=== PATIENT | male | born 1960 ===

== ENCOUNTER 2017-04-12 04:08 | Inpatient (IN) | payer MEDICAID ==
[2017-04-12] MEDS ORDERED: Lactated Ringers 1,000 ML IV ONE (04:34)
[2017-04-12] MEDS ORDERED: Morphine 4 MG/ML Syringe IVPUSH ONE (04:36)
[2017-04-12] MEDS ORDERED: Ondansetron 8 MG in Sodium Chloride 0.9% 50 ML IV PRN (04:36)
[2017-04-12 04:49] LABS: CHLORIDE,CL 102 mEq/L (98-106); SODIUM,NA 139 mEq/L (136-145)
--- NOTE | 2017-04-12 05:40 | EDM.PDOC ---
ED HPI GENERAL MEDICAL PROBLEM - General Chief Complaint: Abdominal Pain Stated Complaint: "Having abdominal Pain" Time Seen by Provider: 04/12/17 04:42 Source of Information: Reports: Patient History Limitations: Reports: No Limitations - History of Present Illness INITIAL COMMENTS - FREE TEXT/NARRATIVE: Wade is a 56 yo male who presents to the ER via private vehicle with concerns of severe abdominal pain. States he went to bed around 2300hrs tonight and woke up about 0100am with severe abdominal pain. Admits to a history of pancreatitis. States he does drink upwards of 1 Liter of Vodka per day. States over the weekend he had friends from [place] up [place] [employer] and states he drank more than he should have. States he feels nauseated. Admits he will need something for alcohol withdrawal as he will start to get the shakes. Bowel movements haven't been as soft as they usually are. Onset: Today, Sudden Onset Date: 04/12/17 Onset Time: 01:00 Duration: Constant Location: Reports: Abdomen Quality: Reports: Same as Previous Episode Severity: Severe Improves with: Reports: None Associated Symptoms: Reports: Cough, Fever/Chills, Loss of Appetite, Nausea/ Vomiting. Denies: Confusion, Chest Pain, cough w sputum, Shortness of Breath - Related Data Allergies Allergy/AdvReac Type Severity Reaction Status Date / Time bee pollen Allergy Anaphylactic Verified 04/12/17 05:07 Shock Home Meds: Home Meds Atenolol 25 mg PO DAILY 04/12/17 [History] Pantoprazole [ProTONIX] 40 mg BID 04/12/17 [History] amLODIPine [Norvasc] 10 mg DAILY 04/12/17 [History] busPIRone [Buspar] 7.5 mg BID 04/12/17 [History] Past Medical History Cardiovascular History: Reports: Hypertension Gastrointestinal History: Reports: Pancreatitis Other Psychiatric History: alcoholism Oncologic (Cancer) History: Reports: Other (See Below) (stomach) - Past Surgical History GI Surgical History: Reports: Appendectomy, Other (See Below) (stomach surgery for cancer, splenectomy) Social & Family History - Tobacco Use Smoking Status *Q: Current Every Day Smoker Years of Tobacco use: 30 Used Tobacco, but Quit: No Second Hand Smoke Exposure: No - Alcohol Use Days Per Week of Alcohol Use: 5 Number of Drinks Per Day: 3 Total Drinks Per Week: 15 Alcohol Use Frequency: Daily - Recreational Drug Use Recreational Drug Use: Yes Recreational Drug Type: Reports: Marijuana/Hashish ED ROS GENERAL - Review of Systems Review Of Systems: See Below Constitutional: Reports: Chills, Malaise, Diaphoresis, Decreased Appetite. Denies: Fever HEENT: Reports: No Symptoms Respiratory: Reports: Cough. Denies: Shortness of Breath, Wheezing Cardiovascular: Reports: Blood Pressure Problem. Denies: Chest Pain, Palpitations, Syncope GI/Abdominal: Reports: Abdominal Pain, Constipation, Decreased Appetite, Nausea. Denies: Diarrhea, Vomiting : Reports: No Symptoms Skin: Reports: No Symptoms Neurological: Reports: Headache. Denies: Dizziness, Seizure, Syncope ED EXAM, GI/ABD - Physical Exam Exam: See Below Exam Limited By: No Limitations General Appearance: Alert, Moderate Distress. No: Active Emesis Eyes: Bilateral: Normal Appearance Ears: Normal External Exam, Normal Canal, Hearing Grossly Normal, Normal TMs Nose: Normal Mucosa, No Blood, Other (deviated septum to right) Throat/Mouth: Normal Inspection, Normal Lips, Normal Gums, Normal Oropharynx, Normal Voice, No Airway Compromise Head: Atraumatic, Normocephalic Neck: Normal Inspection, Supple Respiratory/Chest: No Respiratory Distress, Lungs Clear, No Accessory Muscle Use , Decreased Breath Sounds Cardiovascular: Regular Rate, Rhythm, No Edema, No Murmur GI/Abdominal Exam: Normal Bowel Sounds, No Organomegaly, No Mass, Tender ( epigastric) Extremities: Normal Inspection, No Pedal Edema, Normal Capillary Refill Neurological: Alert, Oriented, Normal Cognition, No Motor/Sensory Deficits Psychiatric: Normal Affect, Normal Mood Skin Exam: Warm, Dry, Intact, No Rash, Pallor Course - Orders/Labs/Meds Orders: Active Orders 24 hr Category Date Time Status Patient Status Manage Transfer [TRANSFER] Routine ADT 04/12/17 05:13 Ordered LIPASE [REF] Routine Lab 04/12/17 04:50 Received Ondansetron [Zofran] 8 mg Med 04/12/17 04:36 Active Sodium Chloride 0.9% [Normal Saline] 50 ml IV Q8H Resuscitation Status Routine Resus Stat 04/12/17 05:14 Ordered Medication Orders Ondansetron HCl 8 mg/ Sodium (Chloride) 54 mls @ 100 mls/hr IV Q8H PRN PRN Reason: Nausea Last Admin: 04/12/17 04:56 Dose: 100 mls/hr Labs: Laboratory Tests 04/12/17 04/12/17 04/12/17 Range/Units 04:35 04:35 04:35 WBC 9.1 (5.0-10.0) 10^3/uL RBC 4.57 (4.50-6.00) 10^6/uL Hgb 15.5 (14.0-18.0) g/dL Hct 44.6 (40.0-54.0) % MCV 97.6 H (82.0-94.0) fL MCH 33.9 H (27.0-32.0) pg MCHC 34.8 (33.0-38.0) g/dL RDW Coeff of [place] 18.5 H (11.0-15.0) % Plt Count 172 (150-400) 10^3/uL Neut % (Auto) 75.0 (35-85) % Lymph % (Auto) 13.3 (10-55) % [place] % (Auto) 9.9 (0-16) % Eos % (Auto) 1.2 (0-5) % Baso % (Auto) 0.6 (0-3) % Neut # (Auto) 6.81 (1.80-7.00) 10^3/uL Lymph # (Auto) 1.21 (1.00-4.80) 10^3/uL [place] # (Auto) 0.90 H (0.00-0.80) 10^3/uL Eos # (Auto) 0.11 (0.00-0.45) 10^3/uL Baso # (Auto) 0.05 10^3/uL Sodium 139 (136-145) mEq/L Potassium 3.6 (3.5-5.0) mEq/L Chloride 102 (98-106) mEq/L Carbon Dioxide 24 (21-32) mmol/L BUN 13 (7-18) mg/dL Creatinine 0.9 (0.7-1.3) mg/dL Est Cr Clr Drug Dosing TNP Estimated GFR (MDRD) > 60 (>=60) mL/min Glucose 102 H (75-99) mg/dL Calcium 8.8 (8.4-10.1) mg/dL Total Bilirubin 0.6 (0.0-1.0) mg/dL AST 82 H (15-37) U/L ALT 91 H (12-78) U/L Alkaline Phosphatase 87 (46-116) U/L C-Reactive Protein 1.1 H (0.2-0.8) mg/dL Total Protein 7.9 (6.4-8.2) g/dL Albumin 3.5 (3.4-5.0) g/dL Amylase 163 H (25-115) U/L Urine Color Dark yellow (YELLOW) Urine Appearance Clear (CLEAR) Urine pH 6.0 (4.5-8.0) Ur Specific [place] 1.025 H (1.003-1.020) Urine Protein 100 H (NEGATIVE) mg/dL Urine Glucose (UA) Negative (NEGATIVE) mg/dL Urine Ketones 15 H (NEGATIVE) mg/dL Urine Occult Blood Trace-lysed H (NEGATIVE) Urine Nitrite Negative (NEGATIVE) Urine Bilirubin Negative (NEGATIVE) Urine Urobilinogen 0.2 (0.2-1.0) EU/dL Ur Leukocyte Esterase Negative (NEGATIVE) Urine RBC Not seen (0-5) /HPF Urine WBC Not seen (0-5) /HPF Meds: Medications Generic Name Dose Route Start Last Admin Trade Name Freq PRN Reason Stop Dose Admin Ondansetron HCl 8 mg/ Sodium 54 mls @ 100 mls/hr 04/12/17 04:36 04/12/17 04: 56 Chloride IV 100 mls/hr Q8H PRN Administration Nausea Discontinued Medications Generic Name Dose Route Start Last Admin Trade Name Freq PRN Reason Stop Dose Admin Lactated Ringer's 1,000 mls @ 999 mls/hr 04/12/17 04:34 04/12/17 04:49 Ringers, Lactated IV 04/12/17 05:34 999 mls/hr .BOLUS ONE Administration Morphine Sulfate 4 mg 04/12/17 04:36 04/12/17 04:55 Morphine IVPUSH 04/12/17 04:37 4 mg ONETIME ONE Administration Departure - Departure Time of Disposition: 05:48 Disposition: Admitted As Inpatient 68 Clinical Impression: Pancreatitis Qualifiers: Chronicity: acute Pancreatitis type: alcohol induced Acute pancreatitis complication: unspecified Qualified Code(s): K85.20 - Alcohol induced acute pancreatitis without necrosis or infection - Discharge Information - Problem List & Annotations (1) Pancreatitis SNOMED Code(s): 42961944 Code(s): K85.90 - ACUTE PANCREATITIS WITHOUT NECROSIS OR INFECTION, UNSP Status: Acute Qualifiers: Chronicity: acute Pancreatitis type: alcohol induced Acute pancreatitis complication: unspecified Qualified Code(s): K85.20 - Alcohol induced acute pancreatitis without necrosis or infection - Problem List Review Problem List Initiated/Reviewed/Updated: Yes - My Orders Last 24 Hours: My Active Orders 04/12/17 04:36 Ondansetron [Zofran] 8 mg Sodium Chloride 0.9% [Normal Saline] 50 ml IV Q8H 04/12/17 04:50 LIPASE [REF] Routine 04/12/17 05:13 Patient Status Manage Transfer [TRANSFER] Routine 04/12/17 05:14 Resuscitation Status Routine - Assessment/Plan Admission H&P: Please use this note as an admission H&P Last 24 Hours: My Active Orders 04/12/17 04:36 Ondansetron [Zofran] 8 mg Sodium Chloride 0.9% [Normal Saline] 50 ml IV Q8H 04/12/17 04:50 LIPASE [REF] Routine 04/12/17 05:13 Patient Status Manage Transfer [TRANSFER] Routine 04/12/17 05:14 Resuscitation Status Routine Plan: Amylase is elevated with mildly elevated LFT's. Will initiate IV fluid bolus of LR over 1 Liter with continuous fluids to follow at 200mls/hr. Will follow input and output daily as well. Will give Fentanyl with Toradol for discomfort intravenously. Willie is to remain NPO. Zofran intravenously for nausea. Valium for alcohol withdrawal. Will admit to Dr. Hinkle's services under acute care. CT of the abdomen/pelvis to be completed.
[2017-04-12] MEDS ORDERED: Ondansetron 4 MG/2 ML SDV IV PRN (06:30)
[2017-04-12] MEDS ORDERED: Magnesium Hydroxide 400 MG/5 ML Susp 30 ML Cup PO PRN (06:30)
[2017-04-12] MEDS ORDERED: Acetaminophen 325 MG Tab PO PRN (06:30)
[2017-04-12] MEDS ORDERED: Ketorolac 30 MG/ML SDV IVPUSH SCH ×2 (06:30→16:00)
[2017-04-12] MEDS ORDERED: Enoxaparin 40 MG/0.4 ML Syringe SUBCUT SCH (07:00)
[2017-04-12] MEDS: Lactated Ringers 1,000 ML IV SCH ×4 (07:41→23:45)
[2017-04-12] MEDS ORDERED: BUSPIRONE 7.5 MG PO SCH (08:00)
[2017-04-12] MEDS ORDERED: Pantoprazole 40 MG Tab.CR PO SCH (08:00)
[2017-04-12] MEDS ORDERED: Thiamine 100 MG in Sodium Chloride 0.9% 100 ML IV ONE (08:35)
[2017-04-12] MEDS: Pantoprazole 40 MG Vial IVPUSH SCH (09:23)
[2017-04-12] MEDS: fentaNYL 100 MCG/2 ML SDV IVPUSH PRN ×5 (09:26→23:03)
[2017-04-12] MEDS: Multivitamin Tab PO SCH (09:45)
[2017-04-12] MEDS: busPIRone 5 MG Tab PO SCH ×2 (09:46→19:57)
[2017-04-12] MEDS: amLODIPine 10 MG Tab PO SCH (09:46)
[2017-04-12] MEDS: Atenolol 25 MG Tab PO SCH (09:46)
[2017-04-12] MEDS: Folic Acid 1 MG Tab PO SCH (09:46)
[2017-04-12] MEDS: LORazepam 2 MG/ML Syringe IVPUSH PRN ×5 (09:56→19:55)
[2017-04-12] MEDS: Acetaminophen/oxyCODONE 325-5 MG Tab PO PRN (19:54)
[2017-04-12] MEDS: Thiamine 100 MG Tab PO SCH (19:58)
[2017-04-13] MEDS: Lactated Ringers 1,000 ML IV SCH ×4 (04:15→21:33)
[2017-04-13] MEDS: Acetaminophen/oxyCODONE 325-5 MG Tab PO PRN (04:15)
[2017-04-13] MEDS: fentaNYL 100 MCG/2 ML SDV IVPUSH PRN ×4 (06:41→21:31)
[2017-04-13 07:19] LABS: CHLORIDE,CL 98 mEq/L (98-106); SODIUM,NA 135 mEq/L (136-145)
[2017-04-13] MEDS: Pantoprazole 40 MG Vial IVPUSH SCH (08:14)
[2017-04-13] MEDS: Enoxaparin 40 MG/0.4 ML Syringe SUBCUT SCH (08:14)
[2017-04-13] MEDS: amLODIPine 10 MG Tab PO SCH (08:15)
[2017-04-13] MEDS: Folic Acid 1 MG Tab PO SCH (08:15)
[2017-04-13] MEDS: Atenolol 25 MG Tab PO SCH (08:15)
[2017-04-13] MEDS: Multivitamin Tab PO SCH (08:15)
[2017-04-13] MEDS: busPIRone 5 MG Tab PO SCH ×2 (08:15→19:57)
[2017-04-13] MEDS ORDERED: Magnesium Sulfate/D5W 2 GM in Premix Bag 1 BAG IV ONE (08:50)
[2017-04-13] MEDS: chlordiazePOXIDE 10 MG Cap PO SCH ×2 (18:41→19:57)
[2017-04-13] MEDS: Thiamine 100 MG Tab PO SCH (19:56)
[2017-04-13] MEDS: LORazepam 2 MG/ML Syringe IVPUSH PRN (19:57)
--- NOTE | 2017-04-13 20:25 | PCM.PN ---
- General Info Date of Service: 04/13/17 Admission Dx/Problem (Free Text): Acute Pancreatitis Functional Status: Reports: Pain Controlled, Ambulating, Urinating. Denies: Tolerating Diet - Review of Systems General: Reports: Fatigue, Malaise. Denies: Fever HEENT: Reports: No Symptoms Pulmonary: Reports: Cough. Denies: Shortness of Breath, Wheezing Cardiovascular: Denies: Chest Pain, Edema, Lightheadedness Gastrointestinal: Reports: Abdominal Pain. Denies: Nausea, Vomiting Genitourinary: Reports: No Symptoms Musculoskeletal: Reports: No Symptoms Skin: Reports: No Symptoms Neurological: Reports: No Symptoms Psychiatric: Reports: Anxiety - Patient Data Vitals - Most Recent: Last Vital Signs Temp 98.4 F 04/13/17 20:00 Pulse 73 04/13/17 20:00 Resp 20 04/13/17 20:00 BP 134/96 H 04/13/17 20:00 Pulse Ox 95 04/13/17 20:00 Weight - Most Recent: 196 lb 6.4 oz I&O - Last 24 Hours: Intake & Output 04/13/17 04/13/17 04/13/17 06:59 14:59 22:59 Intake Total 2020 1833 Output Total 925 3500 Balance 1095 1833 -3500 Lab Results Last 24 Hours: Laboratory Results - last 24 hr 04/13/17 04/13/17 Range/Units 05:11 05:15 WBC 8.9 (5.0-10.0) 10^3/uL RBC 4.26 L (4.50-6.00) 10^6/uL Hgb 14.4 (14.0-18.0) g/dL Hct 42.3 (40.0-54.0) % MCV 99.3 H (82.0-94.0) fL MCH 33.8 H (27.0-32.0) pg MCHC 34.0 (33.0-38.0) g/dL RDW Coeff of [place] 17.6 H (11.0-15.0) % Plt Count 153 (150-400) 10^3/uL Neut % (Auto) 67.9 (35-85) % Lymph % (Auto) 18.0 (10-55) % [place] % (Auto) 11.9 (0-16) % Eos % (Auto) 2.0 (0-5) % Baso % (Auto) 0.2 (0-3) % Neut # (Auto) 6.04 (1.80-7.00) 10^3/uL Lymph # (Auto) 1.60 (1.00-4.80) 10^3/uL [place] # (Auto) 1.06 H (0.00-0.80) 10^3/uL Eos # (Auto) 0.18 (0.00-0.45) 10^3/uL Baso # (Auto) 0.02 10^3/uL Sodium 135 L (136-145) mEq/L Potassium 3.9 (3.5-5.0) mEq/L Chloride 98 (98-106) mEq/L Carbon Dioxide 28 (21-32) mmol/L BUN 8 (7-18) mg/dL Creatinine 0.8 (0.7-1.3) mg/dL Est Cr Clr Drug Dosing 115.86 mL/min Estimated GFR (MDRD) > 60 (>=60) mL/min Glucose 76 D (75-99) mg/dL Calcium 9.0 (8.4-10.1) mg/dL Magnesium 1.5 L (1.8-2.4) mg/dL Total Bilirubin 0.8 (0.0-1.0) mg/dL AST 41 H (15-37) U/L ALT 60 (12-78) U/L Alkaline Phosphatase 76 (46-116) U/L C-Reactive Protein 6.6 H (0.2-0.8) mg/dL Total Protein 7.1 (6.4-8.2) g/dL Albumin 2.9 L (3.4-5.0) g/dL Med Orders - Current: Current Medications Acetaminophen (Tylenol) 650 mg PO Q4H PRN PRN Reason: Pain (Mild 1-3)/fever Amlodipine Besylate (Norvasc) 10 mg PO DAILY [facility] Last Admin: 04/13/17 08:15 Dose: 10 mg Atenolol (Tenormin) 25 mg PO DAILY [facility] Last Admin: 04/13/17 08:15 Dose: 25 mg Buspirone HCl (Buspar) 7.5 mg PO BID [facility] Last Admin: 04/13/17 19:57 Dose: 7.5 mg Chlordiazepoxide HCl (Librium) 10 mg PO BID [facility] Last Admin: 04/13/17 19:57 Dose: 10 mg Enoxaparin Sodium (Lovenox) 40 mg SUBCUT Q24H [facility] Last Admin: 04/13/17 08:14 Dose: 40 mg Fentanyl (Sublimaze) 50 mcg IVPUSH Q2H PRN PRN Reason: Abdominal Pain Last Admin: 04/13/17 16:40 Dose: 50 mcg Folic Acid (Folic Acid) 1 mg PO DAILY [facility] Last Admin: 04/13/17 08:15 Dose: 1 mg Lactated Ringer's (Ringers, Lactated) 1,000 mls @ 200 mls/hr IV ASDIRECTED [facility] Last Admin: 04/13/17 16:30 Dose: 200 mls/hr Lorazepam (Ativan) 1 mg IVPUSH Q2H PRN PRN Reason: Withdrawal Symptoms Last Admin: 04/13/17 19:57 Dose: 1 mg Magnesium Hydroxide (Milk Of Magnesia) 30 ml PO Q12H PRN PRN Reason: Constipation Magnesium Oxide (Magnesium Oxide) 250 mg PO BIDM [facility] Last Admin: 04/13/17 16:29 Dose: 250 mg Multivitamins/Minerals/Vitamin C (Tab-A-[place]) 1 tab PO DAILY [facility] Last Admin: 04/13/17 08:15 Dose: 1 tab Ondansetron HCl (Zofran) 4 mg IV Q4H PRN PRN Reason: Nausea/Vomiting Oxycodone/Acetaminophen (Percocet 325-5 Mg) 1 tab PO Q4H PRN PRN Reason: Pain (moderate 4-6) Last Admin: 04/13/17 04:15 Dose: 1 tab Pantoprazole Sodium (Protonix Iv) 40 mg IVPUSH Q24H [facility] Last Admin: 04/13/17 08:14 Dose: 40 mg Thiamine HCl (Vitamin B-1) 100 mg PO BEDTIME [facility] Last Admin: 04/13/17 19:56 Dose: 100 mg Discontinued Medications Diazepam (Valium) 5 mg IVPUSH Q4H PRN PRN Reason: Withdrawal Symptoms Last Admin: 04/12/17 07:43 Dose: 5 mg Enoxaparin Sodium (Lovenox) 40 mg SUBCUT Q24H [facility] Last Admin: 04/12/17 07:42 Dose: 40 mg Lactated Ringer's (Ringers, Lactated) 1,000 mls @ 999 mls/hr IV .BOLUS ONE Stop: 04/12/17 05:34 Last Admin: 04/12/17 04:49 Dose: 999 mls/hr Ondansetron HCl 8 mg/ Sodium (Chloride) 54 mls @ 100 mls/hr IV Q8H PRN PRN Reason: Nausea Last Admin: 04/12/17 04:56 Dose: 100 mls/hr Thiamine HCl 100 mg/ Sodium (Chloride) 101 mls @ 202 mls/hr IV ONETIME ONE Stop: 04/12/17 08:36 Last Admin: 04/12/17 09:20 Dose: 202 mls/hr Magnesium Sulfate/Dextrose 2 (gm/ Premix) 200 mls @ 100 mls/hr IV ONETIME ONE Stop: 04/13/17 10:49 Last Admin: 04/13/17 09:06 Dose: 100 mls/hr Ketorolac Tromethamine (Toradol) 30 mg IVPUSH Q8H [facility] Stop: 04/17/17 05:23 Last Admin: 04/12/17 07:40 Dose: 30 mg Ketorolac Tromethamine (Toradol) 30 mg IVPUSH Q8H [facility] Stop: 04/16/17 08:01 Morphine Sulfate (Morphine) 4 mg IVPUSH ONETIME ONE Stop: 04/12/17 04:37 Last Admin: 04/12/17 04:55 Dose: 4 mg Non-Formulary Medication (Buspirone [Buspar]) 7.5 mg PO BID [facility] Last Admin: 04/12/17 08:53 Dose: Not Given Pantoprazole Sodium (Protonix) 40 mg PO BID [facility] Last Admin: 04/12/17 08:54 Dose: Not Given - Exam General: Alert, Oriented HEENT: Mucous Membr. Moist/[place] Neck: Supple Lungs: Clear to Auscultation, Normal Respiratory Effort Cardiovascular: Regular Rate, Regular Rhythm GI/Abdominal Exam: Normal Bowel Sounds, Soft, Tender (Tender with palpation in RUQ, midepigastric area) Extremities: Normal Inspection, No Pedal Edema Skin: Warm, Dry Neurological: No New Focal Deficit - Problem List & Annotations (1) Pancreatitis SNOMED Code(s): 78227523 Code(s): K85.90 - ACUTE PANCREATITIS WITHOUT NECROSIS OR INFECTION, UNSP Status: Acute Current Visit: Yes Qualifiers: Chronicity: acute Pancreatitis type: alcohol induced Acute pancreatitis complication: unspecified Qualified Code(s): K85.20 - Alcohol induced acute pancreatitis without necrosis or infection - Problem List Review Problem List Initiated/Reviewed/Updated: Yes - My Orders Last 24 Hours: My Active Orders 04/12/17 20:00 Thiamine [Vitamin B-1] 100 mg PO BEDTIME 04/14/17 05:11 MAGNESIUM [CHEM] Routine - Assessment Assessment:: pancreatitis - Plan Plan:: Patient states is feeling somewhat better today. Pain decreased from a 10 to a 7 today. Has been taking Fentanyl and Ativan frequently the last 24 hours, not suffering from withdrawals. Is voiding more now. Has been NPO up to this point. IV fluids infusing. Labs note a normal WBC today of 8.9, CRP of 6.6. BMP relatively normal. Liver enzymes improved today. Magnesium low today at 1.5. No cardiac arrhythmias. Will continue with IV pain meds as needed, slowly introduce clear liquids if able to tolerate. Magnesium sulfate 2 gm given. Will repeat labs in am.
[2017-04-14] MEDS: LORazepam 2 MG/ML Syringe IVPUSH PRN ×4 (00:05→19:51)
[2017-04-14] MEDS: fentaNYL 100 MCG/2 ML SDV IVPUSH PRN ×5 (02:06→19:43)
[2017-04-14] MEDS: Lactated Ringers 1,000 ML IV SCH ×5 (03:13→19:43)
[2017-04-14 07:39] LABS: CHLORIDE,CL 100 mEq/L (98-106); SODIUM,NA 137 mEq/L (136-145)
--- NOTE | 2017-04-14 08:25 | PN ---
DATE: 04/14/2017 S: Wade has really done quite well. He has not spiked any temperatures. His blood pressures have been well controlled. He is actually passing a lot of flatus without any difficulty, up and ambulating and urinating without problem. His outputs have been excellent. He has not had any vital sign irregularities. Pain is down again. He rates it anywhere from 4-5, still getting p.r.n. Ativan and fentanyl. He does have extensive alcohol use history and I did start him on some Librium last night 10 mg twice a day. O: VITAL SIGNS: Temperature 98.3, BP 136/85, pulse 68, saturations 98%. HEENT: Remains grossly benign. NECK: Neck veins are flat. LUNGS: His lung sounds are clear throughout. CARDIAC: Tones are regular. ABDOMEN: Flat and soft. He has active bowel sounds. Still a little tender over the left upper and mid quadrants. No guarding, rebound or rigidity. EXTREMITIES: Without edema. LABORATORY DATA: His amylase is down from 163 on admit to 137. Renal functions and electrolytes are all stable. Hemoglobin remains fine at 15. ASSESSMENT: 1. ACUTE PANCREATITIS. 2. CHRONIC ALCOHOL ABUSE. 3. HYPOMAGNESEMIA, RESOLVED. P: We will allow him to a full liquid diet today and see how he does. Continue with Librium and p.r.n. pain medications. Overall, he has had a very reassuring course thus far. SAPPHIRE/MCKENZIE /[id number]
[2017-04-14] MEDS: Pantoprazole 40 MG Vial IVPUSH SCH (08:37)
[2017-04-14] MEDS: Enoxaparin 40 MG/0.4 ML Syringe SUBCUT SCH (08:40)
[2017-04-14] MEDS: Atenolol 25 MG Tab PO SCH (08:40)
[2017-04-14] MEDS: amLODIPine 10 MG Tab PO SCH (08:40)
[2017-04-14] MEDS: Multivitamin Tab PO SCH (08:41)
[2017-04-14] MEDS: busPIRone 5 MG Tab PO SCH ×2 (08:41→19:43)
[2017-04-14] MEDS: chlordiazePOXIDE 10 MG Cap PO SCH ×2 (08:41→19:43)
[2017-04-14] MEDS: Folic Acid 1 MG Tab PO SCH (08:42)
[2017-04-14] MEDS: Thiamine 100 MG Tab PO SCH (19:44)
[2017-04-15] MEDS: fentaNYL 100 MCG/2 ML SDV IVPUSH PRN (01:09)
[2017-04-15] MEDS: Lactated Ringers 1,000 ML IV SCH (01:09)
[2017-04-15] MEDS: LORazepam 2 MG/ML Syringe IVPUSH PRN ×2 (01:10→07:55)
[2017-04-15] MEDS: Multivitamin Tab PO SCH (07:47)
[2017-04-15] MEDS: amLODIPine 10 MG Tab PO SCH (07:47)
[2017-04-15] MEDS: Atenolol 25 MG Tab PO SCH (07:47)
[2017-04-15] MEDS: Folic Acid 1 MG Tab PO SCH (07:47)
[2017-04-15] MEDS: busPIRone 5 MG Tab PO SCH ×2 (07:48→19:55)
[2017-04-15] MEDS: Pantoprazole 40 MG Vial IVPUSH SCH (07:49)
[2017-04-15] MEDS: chlordiazePOXIDE 10 MG Cap PO SCH ×2 (07:49→19:56)
[2017-04-15 07:54] LABS: CHLORIDE,CL 102 mEq/L (98-106); SODIUM,NA 139 mEq/L (136-145)
[2017-04-15] MEDS: Acetaminophen/oxyCODONE 325-5 MG Tab PO PRN ×3 (07:54→21:09)
[2017-04-15] MEDS: Enoxaparin 40 MG/0.4 ML Syringe SUBCUT SCH (07:56)
[2017-04-15] MEDS ORDERED: LORazepam 0.5 MG Tab PO PRN (09:07)
[2017-04-15] MEDS ORDERED: Sodium Chloride 0.9% 10 ML Syringe FLUSH PRN (12:56)
[2017-04-15] MEDS: LORazepam 0.5 MG Tab PO PRN ×2 (13:41→20:14)
--- NOTE | 2017-04-15 19:25 | PCM.PN ---
- General Info Date of Service: 04/15/17 Admission Dx/Problem (Free Text): Acute Pancreatitis Functional Status: Reports: Pain Controlled, Tolerating Diet, Ambulating - Review of Systems General: Reports: Fatigue. Denies: Fever, Weakness HEENT: Reports: No Symptoms Pulmonary: Denies: Shortness of Breath, Cough, Sputum Cardiovascular: Denies: Chest Pain Gastrointestinal: Reports: Abdominal Pain. Denies: Nausea, Vomiting Genitourinary: Reports: Frequency - Patient Data Vitals - Most Recent: Last Vital Signs Temp 98.2 F 04/15/17 15:39 Pulse 62 04/15/17 15:39 Resp 16 04/15/17 15:39 BP 121/75 04/15/17 15:39 Pulse Ox 97 04/15/17 15:39 Weight - Most Recent: 196 lb 6.4 oz I&O - Last 24 Hours: Intake & Output 04/15/17 04/15/17 04/15/17 06:59 14:59 22:59 Intake Total 2060 840 1110 Output Total 1050 Balance 2060 -210 1110 Lab Results Last 24 Hours: Laboratory Results - last 24 hr 04/15/17 04/15/17 Range/Units 07:15 07:15 WBC 6.0 (5.0-10.0) 10^3/uL RBC 4.41 L (4.50-6.00) 10^6/uL Hgb 14.9 (14.0-18.0) g/dL Hct 43.9 (40.0-54.0) % MCV 99.5 H (82.0-94.0) fL MCH 33.8 H (27.0-32.0) pg MCHC 33.9 (33.0-38.0) g/dL RDW Coeff of [place] 17.2 H (11.0-15.0) % Plt Count 194 (150-400) 10^3/uL Neut % (Auto) 54.1 (35-85) % Lymph % (Auto) 25.7 (10-55) % [place] % (Auto) 16.1 H (0-16) % Eos % (Auto) 3.4 (0-5) % Baso % (Auto) 0.7 (0-3) % Neut # (Auto) 3.22 (1.80-7.00) 10^3/uL Lymph # (Auto) 1.53 (1.00-4.80) 10^3/uL [place] # (Auto) 0.96 H (0.00-0.80) 10^3/uL Eos # (Auto) 0.20 (0.00-0.45) 10^3/uL Baso # (Auto) 0.04 10^3/uL Sodium 139 (136-145) mEq/L Potassium 3.8 (3.5-5.0) mEq/L Chloride 102 (98-106) mEq/L Carbon Dioxide 33 H (21-32) mmol/L BUN 6 L (7-18) mg/dL Creatinine 0.9 (0.7-1.3) mg/dL Est Cr Clr Drug Dosing 102.99 mL/min Estimated GFR (MDRD) > 60 (>=60) mL/min Glucose 107 H (75-99) mg/dL Calcium 9.2 (8.4-10.1) mg/dL Total Bilirubin 0.5 (0.0-1.0) mg/dL AST 58 H (15-37) U/L ALT 67 (12-78) U/L Alkaline Phosphatase 78 (46-116) U/L C-Reactive Protein 2.9 H (0.2-0.8) mg/dL Total Protein 7.2 (6.4-8.2) g/dL Albumin 3.1 L (3.4-5.0) g/dL Med Orders - Current: Current Medications Acetaminophen (Tylenol) 650 mg PO Q4H PRN PRN Reason: Pain (Mild 1-3)/fever Last Admin: 04/14/17 19:44 Dose: 650 mg Amlodipine Besylate (Norvasc) 10 mg PO DAILY [facility] Last Admin: 04/15/17 07:47 Dose: 10 mg Atenolol (Tenormin) 25 mg PO DAILY [facility] Last Admin: 04/15/17 07:47 Dose: 25 mg Buspirone HCl (Buspar) 7.5 mg PO BID [facility] Last Admin: 04/15/17 07:48 Dose: 7.5 mg Chlordiazepoxide HCl (Librium) 10 mg PO BID [facility] Last Admin: 04/15/17 07:49 Dose: 10 mg Enoxaparin Sodium (Lovenox) 40 mg SUBCUT Q24H [facility] Last Admin: 04/15/17 07:56 Dose: 40 mg Fentanyl (Sublimaze) 50 mcg IVPUSH Q2H PRN PRN Reason: Abdominal Pain Last Admin: 04/15/17 01:09 Dose: 50 mcg Folic Acid (Folic Acid) 1 mg PO DAILY [facility] Last Admin: 04/15/17 07:47 Dose: 1 mg Lorazepam (Ativan) 1 mg IVPUSH Q2H PRN PRN Reason: Withdrawal Symptoms Last Admin: 04/15/17 07:55 Dose: 1 mg Lorazepam (Ativan) 0.5 mg PO Q6H PRN PRN Reason: Anxiety Last Admin: 04/15/17 13:41 Dose: 0.5 mg Lorazepam (Ativan) 1 mg PO Q6H PRN PRN Reason: Anxiety Magnesium Hydroxide (Milk Of Magnesia) 30 ml PO Q12H PRN PRN Reason: Constipation Magnesium Oxide (Magnesium Oxide) 250 mg PO BIDM [facility] Last Admin: 04/15/17 17:35 Dose: 250 mg Multivitamins/Minerals/Vitamin C (Tab-A-[place]) 1 tab PO DAILY [facility] Last Admin: 04/15/17 07:47 Dose: 1 tab Ondansetron HCl (Zofran) 4 mg IV Q4H PRN PRN Reason: Nausea/Vomiting Oxycodone/Acetaminophen (Percocet 325-5 Mg) 1 tab PO Q4H PRN PRN Reason: Pain (moderate 4-6) Last Admin: 04/15/17 13:40 Dose: 1 tab Pantoprazole Sodium (Protonix Iv) 40 mg IVPUSH Q24H [facility] Last Admin: 04/15/17 07:49 Dose: 40 mg Sodium Chloride (Saline Flush) 10 ml FLUSH ASDIRECTED PRN PRN Reason: Keep Vein Open Thiamine HCl (Vitamin B-1) 100 mg PO BEDTIME [facility] Last Admin: 04/14/17 19:44 Dose: 100 mg Discontinued Medications Diazepam (Valium) 5 mg IVPUSH Q4H PRN PRN Reason: Withdrawal Symptoms Last Admin: 04/12/17 07:43 Dose: 5 mg Enoxaparin Sodium (Lovenox) 40 mg SUBCUT Q24H [facility] Last Admin: 04/12/17 07:42 Dose: 40 mg Lactated Ringer's (Ringers, Lactated) 1,000 mls @ 999 mls/hr IV .BOLUS ONE Stop: 04/12/17 05:34 Last Admin: 04/12/17 04:49 Dose: 999 mls/hr Ondansetron HCl 8 mg/ Sodium (Chloride) 54 mls @ 100 mls/hr IV Q8H PRN PRN Reason: Nausea Last Admin: 04/12/17 04:56 Dose: 100 mls/hr Lactated Ringer's (Ringers, Lactated) 1,000 mls @ 200 mls/hr IV ASDIRECTED [facility] Last Admin: 04/15/17 01:09 Dose: 200 mls/hr Thiamine HCl 100 mg/ Sodium (Chloride) 101 mls @ 202 mls/hr IV ONETIME ONE Stop: 04/12/17 08:36 Last Admin: 04/12/17 09:20 Dose: 202 mls/hr Magnesium Sulfate/Dextrose 2 (gm/ Premix) 200 mls @ 100 mls/hr IV ONETIME ONE Stop: 04/13/17 10:49 Last Admin: 04/13/17 09:06 Dose: 100 mls/hr Ketorolac Tromethamine (Toradol) 30 mg IVPUSH Q8H [facility] Stop: 04/17/17 05:23 Last Admin: 04/12/17 07:40 Dose: 30 mg Ketorolac Tromethamine (Toradol) 30 mg IVPUSH Q8H [facility] Stop: 04/16/17 08:01 Morphine Sulfate (Morphine) 4 mg IVPUSH ONETIME ONE Stop: 04/12/17 04:37 Last Admin: 04/12/17 04:55 Dose: 4 mg Non-Formulary Medication (Buspirone [Buspar]) 7.5 mg PO BID [facility] Last Admin: 04/12/17 08:53 Dose: Not Given Pantoprazole Sodium (Protonix) 40 mg PO BID [facility] Last Admin: 04/12/17 08:54 Dose: Not Given - Problem List & Annotations (1) Pancreatitis SNOMED Code(s): 27007351 Code(s): K85.90 - ACUTE PANCREATITIS WITHOUT NECROSIS OR INFECTION, UNSP Status: Acute Priority: High Current Visit: Yes Qualifiers: Chronicity: acute Pancreatitis type: alcohol induced Acute pancreatitis complication: unspecified Qualified Code(s): K85.20 - Alcohol induced acute pancreatitis without necrosis or infection - Problem List Review Problem List Initiated/Reviewed/Updated: Yes - My Orders Last 24 Hours: My Active Orders 04/15/17 09:01 LORazepam [Ativan] 0.5 mg PO Q6H PRN 04/15/17 09:07 LORazepam [Ativan] 1 mg PO Q6H PRN 04/15/17 12:56 Sodium Chloride 0.9% [Saline Flush] 10 ml FLUSH ASDIRECTED PRN Convert IV to Saline Lock [OM.PC] Routine 04/15/17 Dinner Regular Diet [DIET] - Assessment Assessment:: pancreatitis - Plan Plan:: Patient states is feeling somewhat better today. Pain decreased from a 10 to a 7 today. Has been taking Fentanyl and Ativan frequently the last 24 hours, not suffering from withdrawals. Is voiding more now. Has been NPO up to this point. IV fluids infusing. Labs note a normal WBC today of 8.9, CRP of 6.6. BMP relatively normal. Liver enzymes improved today. Magnesium low today at 1.5. No cardiac arrhythmias. Will continue with IV pain meds as needed, slowly introduce clear liquids if able to tolerate. Magnesium sulfate 2 gm given. Will repeat labs in am. 04/15/2017 Patient is doing much better today. Did tolerate full liquid diet yesterday, no nausea or increase in pain. Patient has reduced the use of his pain medications, trying to tolerate oral pain meds versus IV Fentanyl. Up and ambulating yesterday afternoon. Still voiding well. Labs continue to improve, stable WBC, CRP down to 2.9. Magnesium improved yesterday IV switched to saline lock. Increased diet to regular diet. Encouraged oral pain meds. Switched Ativan to oral as well. Patient aware. Possible discharge home tomorrow.
[2017-04-15] MEDS: Thiamine 100 MG Tab PO SCH (20:00)
[2017-04-16] MEDS: Acetaminophen/oxyCODONE 325-5 MG Tab PO PRN ×2 (03:10→07:54)
[2017-04-16] MEDS: LORazepam 0.5 MG Tab PO PRN (07:55)
[2017-04-16] MEDS: amLODIPine 10 MG Tab PO SCH (07:56)
[2017-04-16] MEDS: busPIRone 5 MG Tab PO SCH (07:56)
[2017-04-16] MEDS: Folic Acid 1 MG Tab PO SCH (07:56)
[2017-04-16] MEDS: Multivitamin Tab PO SCH (07:56)
[2017-04-16] MEDS: chlordiazePOXIDE 10 MG Cap PO SCH (07:56)
[2017-04-16] MEDS: Pantoprazole 40 MG Vial IVPUSH SCH (07:57)
[2017-04-16] MEDS: Enoxaparin 40 MG/0.4 ML Syringe SUBCUT SCH (07:57)
[2017-04-16] MEDS: Atenolol 25 MG Tab PO SCH (07:58)
[2017-04-16 10:44] VITALS: BP 131/82
[2017-04-16] MEDS ORDERED: Take Home: Acetaminophen/oxyCODONE 325-5 MG, 2 Tab Pack PO ONE (11:27)
[2017-04-16] MEDS ORDERED: Take Home: LORazepam 0.5 MG Tab, 2 Tab Pack PO ONE (11:27)
[2017-04-16] MEDS ORDERED: Acetaminophen/oxyCODONE 325-5 MG Tab PO ONE (11:59)
[2017-04-16] MEDS ORDERED: LORazepam 0.5 MG Tab PO ONE (11:59)
--- NOTE | 2017-04-16 12:32 | PCM.DCSUM1 ---
Discharge Summary - Hospital Course Free Text/Narrative:: Patient admitted acute for pancreatitis. Has been a heavy drinker and had issues with pancreatitis in the past. Elevated amylase on admission, CT was done that did show acute pancreatitis. Admitted for IV fluids due to dehydration, pain control and anxiety. Fentanyl ordered for pain control. Valium for anxiety and withdrawal symptoms. - Discharge Data Discharge Date: 04/16/17 Discharge Disposition: Home, Self-Care 01 Condition: Good - Discharge Diagnosis/Problem(s) (1) Pancreatitis SNOMED Code(s): 40388600 ICD Code: K85.90 - ACUTE PANCREATITIS WITHOUT NECROSIS OR INFECTION, UNSP Status: Acute Priority: High Qualifiers: Chronicity: acute Pancreatitis type: alcohol induced Acute pancreatitis complication: unspecified Qualified Code(s): K85.20 - Alcohol induced acute pancreatitis without necrosis or infection - Patient Summary/Data Complications: none Hospital Course: Patient has done well through admission with improvement of his pain and increasing his diet to tolerance. Liver enzymes improved through stay, amylase reduced. Is up ambulating and tolerating well. Over the last 5 days, abdominal pain has improved, able to transition from IV pain meds to oral and reduced amounts. Covered for DTs/withdrawal with banana pack and Librium. WBC on admit 9.1, today 6.0. Lipase on admit was elevated at 323. Amylase elevated at 163, now 137. Magnesium was low at 1.5, was given 2 gm of magnesium sulfate. AST on admit 82, improved to 58; ALT 91 now 67. Discharged home on Percocet, Ativan and encouragement to avoid alcohol. - Patient Instructions Diet: Usual Diet as Tolerated Activity: As Tolerated - Discharge Plan Prescriptions/Med Rec: Acetaminophen/oxyCODONE [Percocet 325-5 MG] 1 tab PO Q6H PRN #30 tablet PRN Reason: Pain LORazepam [Ativan] 1 mg PO Q6H PRN #30 tablet PRN Reason: Anxiety Home Medications: Home Meds Atenolol 25 mg PO DAILY 04/12/17 [History] Pantoprazole [ProTONIX] 40 mg BID 04/12/17 [History] amLODIPine [Norvasc] 10 mg DAILY 04/12/17 [History] busPIRone [Buspar] 7.5 mg BID 04/12/17 [History] Acetaminophen/oxyCODONE [Percocet 325-5 MG] 1 tab PO Q6H PRN #30 tablet [Rx] LORazepam [Ativan] 1 mg PO Q6H PRN #30 tablet 04/16/17 [Rx] Forms: ED Department Discharge Referrals: Ranjan Hinkle MD [Primary Care Provider] - (Call in am to [phone] to NR for appointment with Dr. Hinkle for hospital recheck on 04-24-2017) - Discharge Summary/Plan Comment DC Time >30 min.: No - General Info Date of Service: 04/16/17 Admission Dx/Problem (Free Text: Acute Pancreatitis Functional Status: Reports: Pain Controlled, Tolerating Diet, Ambulating - Review of Systems General: Reports: Fatigue. Denies: Fever, Weakness HEENT: Reports: No Symptoms Pulmonary: Denies: Shortness of Breath, Cough Cardiovascular: Denies: Chest Pain, Edema, Lightheadedness Gastrointestinal: Reports: Abdominal Pain. Denies: Nausea, Vomiting Genitourinary: Reports: No Symptoms Musculoskeletal: Reports: No Symptoms Skin: Reports: No Symptoms Neurological: Reports: No Symptoms - Patient Data Vitals - Most Recent: Last Vital Signs Temp 98.2 F 04/16/17 08:00 Pulse 63 04/16/17 08:00 Resp 18 04/16/17 08:00 BP 131/82 04/16/17 08:00 Pulse Ox 97 04/16/17 08:00 Weight - Most Recent: 196 lb 6.4 oz I&O - Last 24 hours: Intake & Output 04/15/17 04/16/17 04/16/17 22:59 06:59 14:59 Intake Total 1110 800 Balance 1110 800 Med Orders - Current: Current Medications Discontinued Medications Acetaminophen (Tylenol) 650 mg PO Q4H PRN PRN Reason: Pain (Mild 1-3)/fever Last Admin: 04/14/17 19:44 Dose: 650 mg Amlodipine Besylate (Norvasc) 10 mg PO DAILY [facility] Last Admin: 04/16/17 07:56 Dose: 10 mg Atenolol (Tenormin) 25 mg PO DAILY [facility] Last Admin: 04/16/17 07:58 Dose: 25 mg Buspirone HCl (Buspar) 7.5 mg PO BID [facility] Last Admin: 04/16/17 07:56 Dose: 7.5 mg Chlordiazepoxide HCl (Librium) 10 mg PO BID [facility] Last Admin: 04/16/17 07:56 Dose: 10 mg Diazepam (Valium) 5 mg IVPUSH Q4H PRN PRN Reason: Withdrawal Symptoms Last Admin: 04/12/17 07:43 Dose: 5 mg Enoxaparin Sodium (Lovenox) 40 mg SUBCUT Q24H [facility] Last Admin: 04/12/17 07:42 Dose: 40 mg Enoxaparin Sodium (Lovenox) 40 mg SUBCUT Q24H [facility] Last Admin: 04/16/17 07:57 Dose: 40 mg Fentanyl (Sublimaze) 50 mcg IVPUSH Q2H PRN PRN Reason: Abdominal Pain Last Admin: 04/15/17 01:09 Dose: 50 mcg Folic Acid (Folic Acid) 1 mg PO DAILY [facility] Last Admin: 04/16/17 07:56 Dose: 1 mg Lactated Ringer's (Ringers, Lactated) 1,000 mls @ 999 mls/hr IV .BOLUS ONE Stop: 04/12/17 05:34 Last Admin: 04/12/17 04:49 Dose: 999 mls/hr Ondansetron HCl 8 mg/ Sodium (Chloride) 54 mls @ 100 mls/hr IV Q8H PRN PRN Reason: Nausea Last Admin: 04/12/17 04:56 Dose: 100 mls/hr Lactated Ringer's (Ringers, Lactated) 1,000 mls @ 200 mls/hr IV ASDIRECTED [facility] Last Admin: 04/15/17 01:09 Dose: 200 mls/hr Thiamine HCl 100 mg/ Sodium (Chloride) 101 mls @ 202 mls/hr IV ONETIME ONE Stop: 04/12/17 08:36 Last Admin: 04/12/17 09:20 Dose: 202 mls/hr Magnesium Sulfate/Dextrose 2 (gm/ Premix) 200 mls @ 100 mls/hr IV ONETIME ONE Stop: 04/13/17 10:49 Last Admin: 04/13/17 09:06 Dose: 100 mls/hr Ketorolac Tromethamine (Toradol) 30 mg IVPUSH Q8H [facility] Stop: 04/17/17 05:23 Last Admin: 04/12/17 07:40 Dose: 30 mg Ketorolac Tromethamine (Toradol) 30 mg IVPUSH Q8H [facility] Stop: 04/16/17 08:01 Lorazepam (Ativan) 1 mg IVPUSH Q2H PRN PRN Reason: Withdrawal Symptoms Last Admin: 04/15/17 07:55 Dose: 1 mg Lorazepam (Ativan) 0.5 mg PO Q6H PRN PRN Reason: Anxiety Last Admin: 04/16/17 07:55 Dose: 0.5 mg Lorazepam (Ativan) 1 mg PO Q6H PRN PRN Reason: Anxiety Lorazepam (Take Home: Lorazepam 0.5 Mg, 2 Tab Pack) 2 packet PO ONETIME ONE Stop: 04/16/17 11:28 Last Admin: 04/16/17 12:00 Dose: 2 packet Magnesium Hydroxide (Milk Of Magnesia) 30 ml PO Q12H PRN PRN Reason: Constipation Magnesium Oxide (Magnesium Oxide) 250 mg PO BIDM [facility] Last Admin: 04/16/17 07:56 Dose: 250 mg Morphine Sulfate (Morphine) 4 mg IVPUSH ONETIME ONE Stop: 04/12/17 04:37 Last Admin: 04/12/17 04:55 Dose: 4 mg Multivitamins/Minerals/Vitamin C (Tab-A-[place]) 1 tab PO DAILY [facility] Last Admin: 04/16/17 07:56 Dose: 1 tab Non-Formulary Medication (Buspirone [Buspar]) 7.5 mg PO BID [facility] Last Admin: 04/12/17 08:53 Dose: Not Given Ondansetron HCl (Zofran) 4 mg IV Q4H PRN PRN Reason: Nausea/Vomiting Oxycodone/Acetaminophen (Percocet 325-5 Mg) 1 tab PO Q4H PRN PRN Reason: Pain (moderate 4-6) Last Admin: 04/16/17 07:54 Dose: 1 tab Oxycodone/Acetaminophen (Take Home: Acetaminophen/Oxycodon, 2 Tab Pack) 2 packet PO ONETIME ONE Stop: 04/16/17 11:28 Last Admin: 04/16/17 12:00 Dose: 2 packet Pantoprazole Sodium (Protonix) 40 mg PO BID [facility] Last Admin: 04/12/17 08:54 Dose: Not Given Pantoprazole Sodium (Protonix Iv) 40 mg IVPUSH Q24H [facility] Last Admin: 04/16/17 07:57 Dose: 40 mg Sodium Chloride (Saline Flush) 10 ml FLUSH ASDIRECTED PRN PRN Reason: Keep Vein Open Thiamine HCl (Vitamin B-1) 100 mg PO BEDTIME [facility] Last Admin: 04/15/17 20:00 Dose: 100 mg - Exam General: Reports: Alert, Oriented HEENT: Reports: Mucous Membr. Moist/[place] Neck: Reports: Supple Lungs: Reports: Clear to Auscultation, Normal Respiratory Effort Cardiovascular: Reports: Regular Rate, Regular Rhythm GI/Abdominal Exam: Normal Bowel Sounds, Soft, Non-Tender Extremities: Normal Inspection, No Pedal Edema Skin: Reports: Warm, Dry Psy/Mental Status: Reports: Alert, Normal Affect, Normal Mood *Q Meaningful Use (DIS) - VTE *Q VTE Criteria *Q: - Stroke *Q Stroke Criteria *Q: - AMI *Q AMI Criteria *Q:
== END 2017-04-16 12:00 | disposition home or self-care (01) | DRG 439 ==
LOC: CC.ED 04:08 → CC.MS 05:25 → UNDOADMIN 05:25 → CC.MS 06:30
PROVIDERS: ADMIT Physician Assistant Medical; ATTEND Family Medicine
DX: K85.20 Alcohol induced acute pancreatitis without necrosis or infection (principal); F10.239 Alcohol dependence with withdrawal, unspecified; E83.42 Hypomagnesemia; E86.0 Dehydration; F12.90 Cannabis use, unspecified, uncomplicated; F17.210 Nicotine dependence, cigarettes, uncomplicated; F41.9 Anxiety disorder, unspecified; Z91.09 Other allergy status, other than to drugs and biological substances; Z79.899 Other long term (current) drug therapy
CPT/HCPCS: 36415; 74177; 80053; 81001; 82150; 83690; 83735; 85025; 86140; 96365; 96375; 99284; A9270-GY; C9113; J1650; J1885; J2060; J2270; J2405; J3010; J3360; J3411; J3475; J7050; J7120; Q9967